=== PATIENT | female | born 1980 | race Caucasian/White ===

== ENCOUNTER 2019-08-20 12:15 | Observation (INO) | payer OTHER ==
[~2019-08-20 12:15] MED LIST: ACET-66 GT; AMOX500C2 PO; PREN1TAB52 PO; PRENATAL ONE T1 EACH
[2019-08-20 12:47] VITALS: BP 128/84
[2019-08-20] MEDS ORDERED: CALC500T7 PO (12:55)
[2019-08-20] MEDS ORDERED: OMEP20 PO (12:55)
== END 2019-08-20 14:00 | disposition home or self-care (01) ==
LOC: 4S 12:15
PROVIDERS: ADMIT Obstetrics & Gynecology; ATTEND Obstetrics & Gynecology
DX: O30.003 Twin pregnancy, unspecified number of placenta and unspecified number of amniotic sacs, third trimester (principal); O09.523 Supervision of elderly multigravida, third trimester; Z3A.36 36 weeks gestation of pregnancy
CPT/HCPCS: 76811; 76812; 81002; G0378

== ENCOUNTER 2019-09-10 13:20 | Inpatient (IN) | payer OTHER ==
[~2019-09-10] VITALS: Ht 160 cm; Wt 97.1 kg
[~2019-09-10 13:20] MED LIST changes: -ACET-66 GT; -AMOX500C2 PO; +CALC500T7 PO; +DEXAMETHASONE SOD PHOS 4 MG/ML VIAL IVP ONE; +EPINEPHrine 1:1,000 [1 MG/ML] AMP IM ONE; +KETOROLAC TROMETHAMINE 60 MG/2 ML VIAL IM ONE; +OMEP20 PO; +ONDANSETRON HCL 4 MG/2 ML VIAL IVP ONE; +OXYTOCIN 10 UNITS/ML VIAL IM ONE
[2019-09-10] MEDS ORDERED: RINGERS SOLUTION,LACTATED 1,000 ML IV ONE (16:08)
[2019-09-10] MEDS ORDERED: CITRIC ACID/SODIUM CITRATE 30 ML SOLUTION UDCUP PO ONE (16:15)
[2019-09-10] MEDS ORDERED: METOCLOPRAMIDE HCL 5 MG/ML 2 ML VIAL IVP ONE (16:15)
[2019-09-10 17:08] VITALS: BP 123/81
[2019-09-10] MEDS ORDERED: INFLUENZA VIRUS VACCINE QVS 2019-20 (3YR+)/PF 60 MCG/0.5 ML SYRINGE IM ONE (17:15)
[2019-09-10 17:16] LABS: BASOPHILS % (AUTO) 0.5 % (0.0-2.0); EOSINOPHILS % (AUTO) 0.4 % (1.0-6.0); HEMATOCRIT 32.7 % (36-46); LYMPHOCYTES # (AUTO) 2.7 K/uL (1.0-4.8); LYMPHOCYTES % (AUTO) 34.1 % (22.0-44.0); MEAN CORPUSCULAR HEMOGLOBIN 27.4 pg (26.0-34.0); MEAN CORPUSCULAR HGB CONC 33.7 G/dL (31.0-37.0); MEAN CORPUSCULAR VOLUME 81 fL (80-100); MONOCYTES # (AUTO) 0.3 K/uL (0.1-1.0); MONOCYTES % (AUTO) 4.3 % (2.0-9.0); NEUTROPHILS # (AUTO) 4.8 K/uL (1.8-7.7); NEUTROPHILS % (AUTO) 60.7 % (40.0-70.0); PLATELET COUNT (AUTO)-OB 157 K/uL (150-450); RED BLOOD CELL COUNT(AUTO) 4.03 MIL/uL (4.00-5.20); RED CELL DISTRIBUTION WIDTH 14.7 % (11.5-14.5)
[2019-09-10 17:43] LABS: ANION GAP 14 mmol/L (8-16); CALCIUM, TOTAL 8.1 mg/dL (8.8-10.5); CARBON DIOXIDE 17 mmol/L (22-29); CHLORIDE 105 mmol/L (98-107); CREATININE 0.96 mg/dL (0.60-1.30); GLOMERULAR FILTR. RATE CALC > 60 mL/min (>60); GLUCOSE,RANDOM 90 mg/dL (70-110); SODIUM SERUM 136 mmol/L (136-145); UREA NITROGEN, BLOOD 14 mg/dL (7-18)
[2019-09-10] MEDS ORDERED: PREN-217 PO (17:45)
[2019-09-10 17:49] LABS: ALANINE AMINOTRANSFERASE 33 U/L (12-78); ALBUMIN 2.2 g/dL (3.4-5.0); ALKALINE PHOSPHATASE 278 U/L (46-116); ASPARTATE AMINOTRANSFERASE 29 U/L (15-37); BILIRUBIN,TOTAL 0.3 mg/dL (0.1-1.0); TOTAL PROTEIN, SERUM 6.4 g/dL (6.4-8.2); URIC ACID 6.8 mg/dL (2.6-7.2)
[2019-09-10] MEDS ORDERED: OXYTOCIN 30 UNITS/LACT RINGERS 500 ML IV ONE (18:59)
[2019-09-10] MEDS ORDERED: LANOLIN 7 GM OINTMENT TP PRN (19:00)
[2019-09-10] MEDS ORDERED: CYCLOBENZAPRINE HCL 10 MG TABLET PO PRN (19:00)
[2019-09-10] MEDS ORDERED: MIDAZOLAM HCL 2 MG/2 ML VIAL ONE (19:15)
[2019-09-10] MEDS ORDERED: BUPIVACAINE HCL/DEX-WATER/PF 0.75% 2 ML AMP ONE (19:16)
[2019-09-10] MEDS ORDERED: MORPHINE SULFATE/PF 1 MG/ML 10 ML AMP ONE (19:16)
[2019-09-10] MEDS: RINGERS SOLUTION,LACTATED 1,000 ML IV SCH ×2 (19:30→23:45)
[2019-09-10] MEDS ORDERED: FentaNYL CITRATE-PF 100 MCG/2 ML VIAL ONE (19:33)
[2019-09-10] MEDS ORDERED: TRANEXAMIC ACID 1,000 MG in DEXTROSE 5%-WATER 50 ML IV ONE (20:15)
[2019-09-10] MEDS: MAGNESIUM HYDROXIDE SUSPENSION 30 ML UDCUP PO SCH (21:00)
[2019-09-10] MEDS ORDERED: ACETAMINOPHEN 1000 MG/ISO-OSM 100 ML IV ONE (22:15)
[2019-09-10] MEDS ORDERED: ONDANSETRON HCL 4 MG/2 ML VIAL IVP PRN (23:30)
[2019-09-10] MEDS ORDERED: DiphenhydrAMINE HCL 50 MG/ML VIAL IVP PRN (23:30)
[2019-09-10] MEDS ORDERED: FentaNYL CITRATE-PF 100 MCG/2 ML VIAL IVP PRN (23:30)
[2019-09-10] MEDS ORDERED: NALOXONE HCL 0.4 MG/ML VIAL IVP PRN (23:30)
[2019-09-10] MEDS ORDERED: NALBUPHINE HCL 10 MG/ML VIAL IVP ONE (23:30)
[2019-09-10] MEDS: FentaNYL CITRATE-PF 100 MCG/2 ML VIAL IVP PRN (23:44)
[2019-09-11] MEDS: FentaNYL CITRATE-PF 100 MCG/2 ML VIAL IVP PRN ×3 (04:32→18:13)
[2019-09-11 05:40] LABS: BASOPHILS % (AUTO) 0.2 % (0.0-2.0); EOSINOPHILS % (AUTO) 0 % (1.0-6.0); HEMATOCRIT 31.2 % (36-46); HEMOGLOBIN 10.4 g/dL (12.0-16.0); LYMPHOCYTES # (AUTO) 2.4 K/uL (1.0-4.8); LYMPHOCYTES % (AUTO) 18.1 % (22.0-44.0); MEAN CORPUSCULAR HEMOGLOBIN 27.2 pg (26.0-34.0); MEAN CORPUSCULAR HGB CONC 33.4 G/dL (31.0-37.0); MEAN CORPUSCULAR VOLUME 82 fL (80-100); MONOCYTES # (AUTO) 0.3 K/uL (0.1-1.0); MONOCYTES % (AUTO) 1.9 % (2.0-9.0); NEUTROPHILS # (AUTO) 10.7 K/uL (1.8-7.7); NEUTROPHILS % (AUTO) 79.8 % (40.0-70.0); PLATELET COUNT (AUTO)-OB 166 K/uL (150-450); RED BLOOD CELL COUNT(AUTO) 3.82 MIL/uL (4.00-5.20); RED CELL DISTRIBUTION WIDTH 14.8 % (11.5-14.5)
[2019-09-11] MEDS ORDERED: OXYGEN THERAPY IH SCH ×2 (08:00)
[2019-09-11] MEDS: MAGNESIUM HYDROXIDE SUSPENSION 30 ML UDCUP PO SCH ×2 (11:00→20:59)
[2019-09-11] MEDS: IBUPROFEN 800 MG TABLET PO PRN (20:59)
[2019-09-11] MEDS: OxyCODONE HCL/ACETAMINOPHEN 5-325 MG TABLET PO PRN (20:59)
[2019-09-12] MEDS: OxyCODONE HCL/ACETAMINOPHEN 5-325 MG TABLET PO PRN ×4 (02:32→21:11)
[2019-09-12] MEDS: MAGNESIUM HYDROXIDE SUSPENSION 30 ML UDCUP PO SCH ×2 (11:48→21:11)
[2019-09-12] MEDS ORDERED: SENNA/DOCUSATE SODIUM 8.6-50 MG TABLET PO ONE (14:00)
[2019-09-12] MEDS: IBUPROFEN 800 MG TABLET PO PRN ×2 (15:14→23:32)
[2019-09-12] MEDS ORDERED: OxyCODONE HCL/ACETAMINOPHEN 5-325 MG TABLET PO ONE (16:30)
[2019-09-13] MEDS: OxyCODONE HCL/ACETAMINOPHEN 5-325 MG TABLET PO PRN ×4 (03:53→15:56)
[2019-09-13] MEDS: MAGNESIUM HYDROXIDE SUSPENSION 30 ML UDCUP PO SCH (08:06)
[2019-09-13] MEDS ORDERED: IBUP-2071 PO (15:17)
[2019-09-13] MEDS ORDERED: PERCT PO (15:17)
[2019-09-13] MEDS ORDERED: DSSL PO (15:18)
[2019-09-13] MEDS ORDERED: DOCU-275 PO (15:18)
[2019-09-13] MEDS ORDERED: FERR-89 PO (15:18)
== END 2019-09-13 18:00 | disposition home or self-care (01) | DRG 785 ==
LOC: 4S 13:20 → OBSVTOIN 13:20
PROVIDERS: ADMIT Obstetrics & Gynecology; ATTEND Obstetrics & Gynecology
PROC: 10D00Z1 Extraction of Products of Conception, Low, Open Approach (ICD-10-PCS; principal; 2019-09-10)
PROC: 0UB70ZZ Excision of Bilateral Fallopian Tubes, Open Approach (ICD-10-PCS; 2019-09-10)
PROC: 3E02340 Introduction of Influenza Vaccine into Muscle, Percutaneous Approach (ICD-10-PCS; 2019-09-10)
DX: O34.211 Maternal care for low transverse scar from previous cesarean delivery (principal); O30.003 Twin pregnancy, unspecified number of placenta and unspecified number of amniotic sacs, third trimester; O13.4 Gestational [pregnancy-induced] hypertension without significant proteinuria, complicating childbirth; Z3A.37 37 weeks gestation of pregnancy; Z30.2 Encounter for sterilization; Z23 Encounter for immunization; Z37.2 Twins, both liveborn
CPT/HCPCS: 84550; 86850; 86900; 86901; 86920; 87081; 88302; 90686; J0131; J0171; J0690; J1100; J1200; J1885; J2250; J2300; J2405; J2590; J2765; J3010; J3490; J7060; J7120